=== PATIENT | male | born 1935 | race Caucasian/White ===

== ENCOUNTER 2017-05-09 22:58 | Emergency (ER) | payer MEDICARE, BC ==
--- NOTE | 2017-05-10 00:48 | ED ---
Lower Extremity - HPI Summary HPI Summary: patient just flew in from [place] and has swelling in RLE -he is concerned about DVT. pain began prior to getting on flight while he was walking this afternoon - History of Current Complaint Chief Complaint: EDExtremityLower Stated Complaint: RT LEG SWELLING Time Seen by Provider: 05/10/17 00:48 Hx Obtained From: Patient Onset of Pain: Hours - 8 hours ago Onset/Duration: Still Present Severity Initially: Moderate Severity Currently: Moderate Pain Intensity: 8 Pain Scale Used: 0-10 Numeric Timing: Constant Location: Is Discrete @ - right calf Character Of Pain: Aching Associated Signs And Symptoms: Positive: Swelling Aggravating Factor(s): Standing, Ambulation, Weight Bearing Alleviating Factor(s): Rest, Elevation, OTC Meds Able to Bear Weight: Yes - Allergies/Home Medications Allergies/Adverse Reactions: Allergies Allergy/AdvReac Type Severity Reaction Status Date / Time No Known Allergies Allergy Verified 05/09/17 23:09 PMH/Surg Hx/FS Hx/Imm Hx Previously Healthy: No Endocrine/Hematology History: Reports: Hx Diabetes Denies: Hx Thyroid Disease Cardiovascular History: Reports: Hx Hypertension, Hx Syncope - 07/23/15 near syncopal episode Respiratory History: Reports: Hx Chronic Bronchitis, Hx Pneumonia - Several times Denies: Hx Asthma, Hx Chronic Obstructive Pulmonary Disease (COPD) GI History: Reports: Hx Gall Bladder Disease - Gallbladder removed [place] [facility] [place] Denies: Hx Ulcer History: Reports: Hx Kidney Stones, Hx Renal Disease - STONES, Other Problems/Disorders - Patient of Dr. Arellano. Appointment scheduled 08/12/14. Musculoskeletal History: Reports: Hx Back Problems Sensory History: Reports: Hx Cataracts - Surgical removal, Hx Contacts or Glasses - Reading Opthamlomology History: Reports: Hx Cataracts - Surgical removal, Hx Contacts or Glasses - Reading - Cancer History Hx Hematologic Symptoms: No Hx Chemotherapy: No Hx Radiation Therapy: No Hx Palliative Cancer Treatment: No - Surgical History Surgery Procedure, Year, and Place: hernia repair; GB removed Hx Anesthesia Reactions: No - Immunization History Hx Pertussis Vaccination: No Immunizations Up to Date: Yes Infectious Disease History: No Infectious Disease History: Denies: Hx Hepatitis, Hx Human Immunodeficiency Virus (HIV), History Other Infectious Disease, Traveled Outside the [place] in Last 30 Days - Family History Known Family History: Positive: Cardiac Disease, Diabetes, Other - breast ca, etoh abuse - Social History Occupation: Retired Lives: With Family Alcohol Use: Occasionally Hx Substance Use: No Substance Use Type: Reports: None Hx Tobacco Use: Yes Smoking Status (MU): Former Smoker Type: Cigarettes Have You Smoked in the Last Year: No Review of Systems Constitutional: Negative Eyes: Negative ENT: Negative Cardiovascular: Negative Respiratory: Negative Gastrointestinal: Negative Genitourinary: Negative Musculoskeletal: Other Positive: Myalgia - right calf with swelling Skin: Negative Neurological: Negative Psychological: Normal All Other Systems Reviewed And Are Negative: Yes Physical Exam Triage Information Reviewed: Yes Vital Signs On Initial Exam: Initial Vitals Temp Pulse Resp BP Pulse Ox 97.6 F 84 16 140/79 96 05/09/17 23:06 05/09/17 23:06 05/09/17 23:06 05/09/17 23:06 05/09/17 23:06 Vital Signs Reviewed: Yes Appearance: Positive: Well-Appearing, Well-Nourished, Pain Distress - mild Skin: Positive: Warm, Skin Color Reflects Adequate Perfusion Head/Face: Positive: Normal Head/Face Inspection Eyes: Positive: Normal, EOMI, SANDY, Conjunctiva Clear ENT: Positive: Normal ENT inspection, Hearing grossly normal. Negative: Nasal congestion, Nasal drainage, Tonsillar swelling, Tonsillar exudate, Trismus, Muffled/hoarse voice Neck: Positive: Supple, Nontender Respiratory/Lung Sounds: Positive: Breath Sounds Present Cardiovascular: Positive: Normal, RRR, Pulses are Symmetrical in both Upper and Lower Extremities, Leg Edema Right Abdomen Description: Positive: Nontender Musculoskeletal: Positive: Normal, Strength/ROM Intact, Edema Right - lower leg Neurological: Positive: Normal, Sensory/Motor Intact, Alert, Oriented to Person Place, Time, CN Intact II-III, Reflexes Intact, NV Bundle Intact Distally Psychiatric: Positive: Normal AVPU Assessment: Alert - [place] Coma Scale Best Eye Response: 4 - Spontaneous Best Motor Response: 6 - Obeys Commands Best Verbal Response: 5 - Oriented Coma Scale Total: 15 Diagnostics - Vital Signs Vital Signs Temp Pulse Resp BP Pulse Ox 05/09/17 23:06 97.6 F 84 16 140/79 96 - Laboratory Lab Statement: Any lab studies that have been ordered have been reviewed, and results considered in the medical decision making process. - Ultrasound No standard instances Ultrasound Interpretation: Positive (See Comments) - hematoma right calf Ultrasound Interpretation Completed By: Radiologist Lower Extremity Course/Dx - Course Assessment/Plan: rest, toe touch, minimal weight bearing leg elevated, follow with md PLANNED TO ed for any acute changes - Diagnoses Provider Diagnoses: Hematoma of right lower extremity, Hypertension associated with diabetes - Physician Notifications Discussed Care Of Patient With: Shahid Kapadia Time Discussed With Above Provider: 01:00 Discharge - Discharge Plan Condition: Stable Disposition: HOME Patient Education Materials: Hematoma (ED), Hypertension (ED) Referrals: Manuel Sellers MD [Primary Care Provider] - 05/11/17 Additional Instructions: Minimal weight bearing on right leg, Elevated as much as possible, follow with MD on Tuesday---Return to hospital immediately for increase pain swelling numbness tingling in leg or foot, change in color temperature in leg or foot Your blood pressure is just slightly elevated this evening---follow with Dr. Patel
[2017-05-10 02:08] VITALS: BP 109/64
--- NOTE | 2017-05-10 07:48 | RAD ---
HISTORY: Right calf pain and edema TECHNIQUE: Multiple transverse and longitudinal ultrasound images were obtained of the veins of the right lower extremity using grayscale, color Doppler, and spectral Doppler imaging with and without compression and with augmentation. FINDINGS: VEINS: The common femoral vein, deep femoral vein, femoral vein and popliteal vein are compressible throughout their course, with normal flow on color Doppler imaging and normal response to augmentation on spectral Doppler imaging. SOFT TISSUES: Between the subcutaneous tissue and the musculature of the medial proximal right calf there is an avascular echogenic collection measuring 3.2 x 6.5 cm in the axial plane and approximately 8.8 cm in length. IMPRESSION: 1. No sonographic evidence of deep vein thrombosis. 2. Possible hematoma overlying the medial proximal right calf musculature.
== END 2017-05-10 01:15 | disposition home or self-care (01) ==
LOC: ED 22:58
DX: S80.11XA Contusion of right lower leg, initial encounter (principal); X58.XXXA Exposure to other specified factors, initial encounter; Y93.9 Activity, unspecified; Y92.9 Unspecified place or not applicable; R60.0 Localized edema; I10 Essential (primary) hypertension; E11.9 Type 2 diabetes mellitus without complications; Z87.442 Personal history of urinary calculi; Z90.49 Acquired absence of other specified parts of digestive tract; Z87.891 Personal history of nicotine dependence
CPT/HCPCS: 99282

== ENCOUNTER 2017-07-12 10:30 | Emergency (ER) | payer MEDICARE, BC ==
[2017-07-12 11:02] VITALS: BP 115/66
--- NOTE | 2017-07-12 11:35 | UC ---
Skin Complaint HPI - HPI Summary HPI Summary: Pt presents with a skin growth on the back of his neck. He tells me about 2 years ago he had an abscess in this same spot that went away with warm compresses. About 3 weeks ago this abscess returned. Since that time it has increased in size, redness, and pain. He denies fever, chills, hx of MRSA, headache, or similar lesions elsewhere. - History of Current Complaint Chief Complaint: UCSkin Time Seen by Provider: 07/12/17 11:35 Stated Complaint: LUMP ON BACK OF NECK Hx Obtained From: Patient Onset/Duration: Gradual Onset Skin Exposure Onset/Duration: Weeks Ago Timing: Constant Onset Severity: Mild Current Severity: Mild Pain Intensity: 2 Pain Scale Used: 0-10 Numeric - Allergy/Home Medications Allergies/Adverse Reactions: Allergies Allergy/AdvReac Type Severity Reaction Status Date / Time No Known Allergies Allergy Verified 07/12/17 11:02 Review of Systems Constitutional: Negative Skin: Other - Abscess back of neck ENT: Negative Respiratory: Negative Cardiovascular: Negative Neurological: Negative Psychological: Negative All Other Systems Reviewed And Are Negative: Yes PMH/Surg Hx/FS Hx/Imm Hx Previously Healthy: Yes Endocrine History: Diabetes Cardiovascular History: Hypertension - Surgical History Surgical History: Yes Surgery Procedure, Year, and Place: hernia repair; GB removed - Family History Known Family History: Positive: Cardiac Disease, Diabetes, Other - breast ca, etoh abuse - Social History Occupation: Retired Lives: With Family Alcohol Use: Occasionally Substance Use Type: None Smoking Status (MU): Former Smoker Type: Cigarettes Length of Time of Smoking/Using Tobacco: approx 20 yrs Have You Smoked in the Last Year: No When Did the Patient Quit Smoking/Using Tobacco: 1983 - Immunization History Most Recent Influenza Vaccination: 05/08 Most Recent Tetanus Shot: unknown Most Recent Pneumonia Vaccination: 2014 Physical Exam Triage Information Reviewed: Yes Appearance: Well-Appearing, Well-Nourished Vital Signs: Initial Vital Signs Temp 97.9 F 07/12/17 10:54 Pulse 73 07/12/17 10:54 Resp 16 07/12/17 10:54 BP 115/66 07/12/17 10:54 Pulse Ox 97 07/12/17 10:54 Vital Signs Reviewed: Yes Neck: Positive: Supple, Nontender, No Lymphadenopathy Respiratory: Positive: Chest non-tender, Lungs clear, Normal breath sounds, No respiratory distress, No accessory muscle use Cardiovascular: Positive: RRR, No Murmur, Pulses Normal Neurological: Positive: Alert Psychological: Positive: Age Appropriate Behavior Skin: Positive: Other - There is a 1.5cm in diameter fluctuant abscess on the nape of the neck with surrounding erythema and mild induration. Mildly TTP. No drainage or streaking. Course/Dx - Course Course Of Treatment: A time out was performed, witnessed, and signed. 2mL of 2% lidocaine without epi was administered and good anesthetization was achieved. An Iodine swab was used to cleanse the area. A #11 blade scalpel was used to make a linear central incision ~3mm in length. Copious purulent matter was able to be expressed. Hemostasis was achieved. No need for packing. Wound was dressed with dry gauze and tegaderm. Pt tolerate procedure well. I will place him on Bactrim for 10 days and follow up prn with PCP. - Differential Diagnoses - Skin Complaint Differential Diagnoses: Abscess, MRSA - Diagnoses Provider Diagnoses: Abscess back of neck Procedures - Incision and Drainage Site: Nape of neck Anesthesia: Local - 2% without epi lidocaine Instrument(s): Scalpel - #11 Discharge - Discharge Plan Condition: Stable Disposition: HOME Prescriptions: Sulfamethox/Trimethoprim DS* [Bactrim DS 800/160 TAB*] 1 tab PO BID #14 tab Patient Education Materials: Abscess (ED) Referrals: Manuel Sellers MD [Primary Care Provider] - Additional Instructions: If you develop a fever, SOB, chest pain, new or worsening symptoms - please call your PCP or go to the ED. Keep bandage in place for the next 24 hours. If the abscess returns despite the antibiotic, please call your PCP and schedule a follow up.
[2017-07-12] MEDS ORDERED: Lidocaine 2% PF * 5 ML VIAL INJ ONE (11:39)
[2017-07-12] MEDS ORDERED: Lidocaine 1% MPF* 2 ML VIAL ONE (11:41)
== END 2017-07-12 12:17 | disposition home or self-care (01) ==
LOC: UCEAST 10:30
DX: Z72.89 Other problems related to lifestyle (principal); L02.11 Cutaneous abscess of neck
CPT/HCPCS: 10060; 99212; G0463

== ENCOUNTER 2018-07-25 07:47 | Emergency (ER) | payer MEDICARE, BC ==
--- NOTE | 2018-07-25 08:10 | ED ---
Back Pain - HPI Summary HPI Summary: This patient is a 82 year old M brought in by EMS to [facility] c/o lower back pain that began last night. Pt states he got out of his chair last night after watching TV and had a sudden onset on left sided lower back pain. It has happened once in the past but resolved with time and Advil. The patient rates the sharp pain 10/10 in severity. Symptoms alleviated by lying flat. The pain is worse with raising the right leg while lying flat. Patient denies numbness and tingling, back injuries, fever, chills, LAINEZ, diaphoresis, and n/v/d. No hx back issues or gout. Hx DM with normal glucose levels. He does not take any daily pain medication. The patients is on her way and will be taking him home. - History of Current Complaint Chief Complaint: EDBackInjuryPain Stated Complaint: BACK PAIN Time Seen by Provider: 07/25/18 08:00 Hx Obtained From: Patient Onset/Duration: Lasting Days, Still Present Onset/Duration: Still Present Timing: Constant Back Pain Location: Is Discrete @ Severity Initially: Severe Severity Currently: Severe Pain Intensity: 10 Pain Scale Used: 0-10 Numeric Associated Signs And Symptoms: Positive: Negative - numbness and tingling, back injuries, fever, chills LAINEZ, diaphoresis, and n/v/d - Allergies/Home Medications Allergies/Adverse Reactions: Allergies Allergy/AdvReac Type Severity Reaction Status Date / Time No Known Allergies Allergy Verified 07/25/18 07:56 PMH/Surg Hx/FS Hx/Imm Hx Endocrine/Hematology History: Reports: Hx Diabetes Denies: Hx Thyroid Disease Cardiovascular History: Reports: Hx Hypertension, Hx Syncope - 07/23/15 near syncopal episode Respiratory History: Reports: Hx Chronic Bronchitis, Hx Pneumonia - Several times Denies: Hx Asthma, Hx Chronic Obstructive Pulmonary Disease (COPD) GI History: Reports: Hx Gall Bladder Disease - Gallbladder removed at [facility] [place] Denies: Hx Ulcer History: Reports: Hx Kidney Stones, Hx Renal Disease - STONES, Other Problems/Disorders - Patient of Dr. Arellano. Appointment scheduled 08/12/14. Musculoskeletal History: Reports: Hx Back Problems Sensory History: Reports: Hx Cataracts - Surgical removal, Hx Contacts or Glasses - Reading Opthamlomology History: Reports: Hx Cataracts - Surgical removal, Hx Contacts or Glasses - Reading - Cancer History Hx Hematologic Symptoms: No Hx Chemotherapy: No Hx Radiation Therapy: No Hx Palliative Cancer Treatment: No - Surgical History Surgery Procedure, Year, and Place: hernia repair; GB removed Hx Anesthesia Reactions: No Infectious Disease History: No Infectious Disease History: Denies: Hx Hepatitis, Hx Human Immunodeficiency Virus (HIV), History Other Infectious Disease, Traveled Outside the [place] in Last 30 Days - Family History Known Family History: Positive: Cardiac Disease, Diabetes, Other - breast ca, etoh abuse - Social History Alcohol Use: Occasionally Hx Substance Use: No Substance Use Type: Reports: None Hx Tobacco Use: Yes Smoking Status (MU): Former Smoker Type: Cigarettes Length of Time of Smoking/Using Tobacco: approx 20 yrs Have You Smoked in the Last Year: No Review of Systems Negative: Fever, Chills, Skin Diaphoresis Negative: Erythema Negative: Sore Throat Negative: Chest Pain Negative: Shortness Of Breath, Cough Negative: Abdominal Pain, Vomiting, Diarrhea, Nausea Negative: dysuria, hematuria Musculoskeletal: Other - lower back pain Negative: Edema Negative: Rash Neurological: Negative - dizziness Negative: Headache, Paresthesia, Numbness All Other Systems Reviewed And Are Negative: Yes Physical Exam - Summary Physical Exam Summary: Constitutional: Well-developed, Well-nourished, Alert. (-) Distressed Skin: Warm, Dry HENT: Normocephalic; Atraumatic Eyes: Conjunctiva normal Neck: Musculoskeletal ROM normal neck. (-) JVD, (-) Stridor, (-) Tracheal deviation Cardio: Rhythm regular, rate normal, Heart sounds normal; Intact distal pulses; The pedal pulses are 2+ and symmetric. Radial pulses are 2+ and symmetric. (-) Murmur Pulmonary/Chest wall: Effort normal. (-) Respiratory distress, (-) Wheezes, (-) Rales Abd: Soft, (-) epigastric tenderness, (-) Distension, (-) Guarding, (-) Rebound Musculoskeletal: (-) Edema, Full passive Rom of the hip. Develops discomfort over the left gluteal area with crossed straight leg raise on the right and with attempting to sit up Lymph: (-) Cervical adenopathy Neuro: Alert, Oriented x3 Psych: Mood and affect Normal Triage Information Reviewed: Yes Vital Signs On Initial Exam: Initial Vitals Temp Pulse Resp BP Pulse Ox 98.1 F 72 20 136/80 95 07/25/18 07:52 07/25/18 07:52 07/25/18 07:52 07/25/18 07:52 07/25/18 07:52 Vital Signs Reviewed: Yes Diagnostics - Vital Signs Vital Signs Temp Pulse Resp BP Pulse Ox 07/25/18 07:52 98.1 F 72 20 136/80 95 - Laboratory Lab Statement: Any lab studies that have been ordered have been reviewed, and results considered in the medical decision making process. - Radiology L spine xray Radiology Interpretation Completed By: Radiologist Summary of Radiographic Findings: FACET OSTEOARTHRITIS MOST PRONOUNCED ALONG THE LOWER LUMBAR SPINE WITH MILD DEGENERATIVE. DISC DISEASE. ED physician has reviewed this radiology report. hip xray Radiology Interpretation Completed By: Radiologist - OSTEOARTHRITIS. NO ACUTE OSSEOUS INJURY. IF SYMPTOMS PERSIST, RECOMMEND REPEAT IMAGING. ED physician has reviewed this radiology report. Re-Evaluation - Re-Evaluation First Eval Re-Evaluation Time: 11:10 - Able to stand and walk, pain under control Back Pain Course/Dx - Course Assessment/Plan: This patient is a 82 year old M brought in by EMS to [facility] c/o lower back pain that began last night. Pt states he got out of his chair last night after watching TV and had a sudden onset on left sided lower back pain. It has happened once in the past but resolved with time and Advil. The patient rates the sharp pain 10/10 in severity. Symptoms alleviated by lying flat. The pain is worse with raising the right leg while lying flat. Patient denies numbness and tingling, back injuries, fever, chills, LAINEZ, diaphoresis, and n/v/ d. No hx back issues or gout. Hx DM with normal glucose levels. He does not take any daily pain medication. The patients is on her way and will be taking him home. Hip pelvis XR reveals, per radiologist, OSTEOARTHRITIS. NO ACUTE OSSEOUS INJURY. IF SYMPTOMS PERSIST, RECOMMEND REPEAT IMAGING. L spine xray reveals per radiology, FACET OSTEOARTHRITIS MOST PRONOUNCED ALONG THE LOWER LUMBAR SPINE WITH MILD DEGENERATIVE. DISC DISEASE. The patient was given a paper rx for tramadol and he was given a pamphlet for [facility] In the ED course the patient was given toradol, tramadol, and valium in the ED . The patient improved with these mediations. Patient will be discharged and follow up from his PCP. Pt was given return instructions,. The patient is agreeable with this plan. - Diagnoses Provider Diagnoses: Hip strain, Hip arthritis, Lumbar and sacral arthritis Discharge - Sign-Out/Discharge Documenting (check all that apply): Patient Departure - departed - Discharge Plan Condition: Good Disposition: HOME Prescriptions: Naproxen TAB* [Naprosyn 250 mg TAB*] 500 mg PO Q8H PRN #30 tab PRN Reason: Pain Scale 6-10 traMADol TAB* [Ultram*] 50 mg PO Q6HR PRN #12 tab MDD 4 PRN Reason: Pain Scale 6-10 Patient Education Materials: Lumbar Radiculopathy (ED), Hip Pain (ED) Referrals: Manuel Sellers MD [Primary Care Provider] - 2 Days Additional Instructions: Heating pad as needed, naproxen for pain the next couple of days, tramadol for the severe pain. Do not drive or operate machinery with tramadol. - Attestation Statements Document Initiated by Scribe: Yes Documenting Scribe: Marcelino Pettit Provider For Whom Scribe is Documenting (Include Credential): Flo Gonzalez MD Scribe Attestation: Marcelino Parr , scribed for Flo Gonzalez MD on 07/25/18 at 1126. Status of Scribe Document: Ready
[2018-07-25] MEDS ORDERED: Ketorolac INJ* 30 MG/ML 1 ML VIAL IM ONE (08:13)
[2018-07-25] MEDS ORDERED: Diazepam TAB(*) 5 MG PO ONE (08:13)
[2018-07-25] MEDS ORDERED: traMADol TAB* 50 MG PO ONE (09:33)
[2018-07-25 11:30] VITALS: BP 125/76
== END 2018-07-25 11:34 | disposition home or self-care (01) ==
LOC: ED 07:47
DX: S76.011A Strain of muscle, fascia and tendon of right hip, initial encounter (principal); M54.5 Low back pain; Z87.891 Personal history of nicotine dependence; M47.898 Other spondylosis, sacral and sacrococcygeal region; M16.10 Unilateral primary osteoarthritis, unspecified hip; X50.9XXA Other and unspecified overexertion or strenuous movements or postures, initial encounter; Y92.9 Unspecified place or not applicable
CPT/HCPCS: 72110; 96372; 99283; A9270-GY; J1885

== ENCOUNTER 2021-02-01 05:36 | Inpatient (IN) ==
[2021-02-01] MEDS ORDERED: NS 0.9% 1000 ml BAG 1,000 ML IV ONE (06:03)
[2021-02-01 06:32] LABS: ABS Basophils 0.1 10^3/ul (0-0.2); ABS Eosinophils 0.2 10^3/ul (0-0.6); ABS Lymphocytes 3.3 10^3/ul (1.0-4.8); ABS Monocytes 0.4 10^3/ul (0-0.8); Eosinophil % 2.8 %; Hematocrit 47 % (42-52); Hemoglobin 15.8 g/dL (14.0-18.0); Lymphocyte % 55.2 %; Mean Corpuscular HGB Conc 34 g/dL (31-36); Mean Corpuscular Hemoglobin 31 pg (27-31); Mean Corpuscular Volume 93 fL (80-94); Mean Platelet Volume 7.7 fL (7.4-10.4); Platelet Count 203 10^3/uL (150-450); Red Blood Count 5.03 10^6 /uL (4.18-5.48); Red Cell Distribution Width 14 % (10-15); White Blood Count 5.9 10^3/uL (3.5-10.8)
[2021-02-01 06:48] LABS: ALT 20 U/L (7-52); AST 14 U/L (13-39); Albumin 3.7 g/dL (3.2-5.2); Albumin/Globulin Ratio 1.5 (1-3); Alkaline Phosphatase 48 U/L (35-149); Anion Gap 6 mmol/L (2-11); Blood Urea Nitrogen 22 mg/dL (6-24); CO2 Carbon Dioxide 27 mmol/L (22-32); Calcium 9.2 mg/dL (8.6-10.3); Chloride 106 mmol/L (101-111); EGFR African American 93.7 (>60); EGFR Non-African American 77.4 (>60); Globulin 2.4 g/dL (2-4); Glucose 185 mg/dL (70-100); Magnesium 1.9 mg/dL (1.9-2.7); Potassium 3.8 mmol/L (3.5-5.0); Sodium 139 mmol/L (135-145); Total Protein 6.1 g/dL (6.4-8.9)
[2021-02-01 06:54] LABS: Troponin I 0.03 ng/mL (<0.03)
[2021-02-01] MEDS ORDERED: Iodixanol (CONTRAST) 320 MG/ML 100 ML SDV IV ONE (07:00)
[2021-02-01 07:03] LABS: TSH Ultra Thyroid Stim Horm 4.82 mcIU/mL (0.34-5.60)
[2021-02-01 08:56] LABS: Urine Appearance Clear; Urine Bilirubin Negative (Negative); Urine Blood Negative (Negative); Urine Color Yellow; Urine Glucose 3+(>=500 mg/dL) (Negative); Urine Ketones Negative (Negative); Urine Nitrite Negative (Negative); Urine Protein Negative (Negative); Urine Urobilinogen Negative (Negative)
[2021-02-01 08:58] LABS: T4, Total 7.39 mcg/dL (6.09-12.23)
[2021-02-01 09:01] LABS: Urine Specific Gravity > 1.060 (1.002-1.030)
[2021-02-01 09:11] LABS: Troponin I 0.49 ng/mL (<0.03)
[2021-02-01] MEDS ORDERED: Heparin DRIP 25,000 UNITS BAG 25,000 UNITS/500 ML BAG IV SCH (09:45)
[2021-02-01] MEDS ORDERED: Heparin 5000 UNITS/ML 1 mL VIAL IV SCH (10:00)
[2021-02-01] MEDS ORDERED: Dextrose 50% Syringe 50 ml 25 GM/50 ML SYRINGE IV PUSH PRN (10:06)
[2021-02-01 10:25] LABS: ABS Basophils 0.1 10^3/ul (0-0.2); ABS Eosinophils 0.1 10^3/ul (0-0.6); ABS Lymphocytes 2.9 10^3/ul (1.0-4.8); ABS Monocytes 0.3 10^3/ul (0-0.8); ABS Neutrophils 2.6 10^3/ul (1.5-7.7); Eosinophil % 1.8 %; Hematocrit 44 % (42-52); Hemoglobin 15.1 g/dL (14.0-18.0); Lymphocyte % 48.6 %; Mean Corpuscular HGB Conc 34 g/dL (31-36); Mean Corpuscular Hemoglobin 32 pg (27-31); Mean Corpuscular Volume 93 fL (80-94); Mean Platelet Volume 7.4 fL (7.4-10.4); Nucleated Red Blood Cells % 0.1; Platelet Count 198 10^3/uL (150-450); Red Blood Count 4.75 10^6 /uL (4.18-5.48); Red Cell Distribution Width 14 % (10-15)
[2021-02-01 10:40] LABS: Blood Urea Nitrogen 19 mg/dL (6-24); EGFR African American 102.5 (>60); EGFR Non-African American 84.7 (>60)
[2021-02-01 10:51] LABS: Activated Partial Thrombo Time 32.7 seconds (26.0-38.0)
[2021-02-01 11:23] LABS: Cholesterol 142 mg/dL; HDL Cholesterol 34.9 mg/dL; LDL Cholesterol 85 mg/dL; Triglycerides 110 mg/dL
[2021-02-01 12:29] LABS: Troponin I 1.65 ng/mL (<0.03)
[2021-02-01 13:56] LABS: CO2 Carbon Dioxide 20 mmol/L (22-32); Calcium 9.2 mg/dL (8.6-10.3); Chloride 109 mmol/L (101-111); Sodium 139 mmol/L (135-145)
[2021-02-01 14:01] LABS: Anion Gap 10 mmol/L (2-11)
[2021-02-01 14:02] LABS: Glucose 126 mg/dL (70-100)
[2021-02-01 14:28] LABS: INR 1.04 (0.86-1.15)
[2021-02-01 15:08] LABS: Potassium Redraw 3.8 mmol/L (3.5-5.0)
[2021-02-01 15:16] LABS: Troponin I 2.33 ng/mL (<0.03)
[2021-02-01] MEDS: Fluticasone NASAL SPRAY 50MCG 16 gm SPRAY BTL INTRANASAL SCH (16:32)
[2021-02-01 17:24] LABS: Troponin I 2.82 ng/mL (<0.03)
[2021-02-01] MEDS ORDERED: NS 0.9% 500 ml BAG 500 ML IV ONE (18:42)
[2021-02-01] MEDS ORDERED: nitroGLYCERIN DRIP 25,000 MCG/250 ML BTL IV SCH (19:00)
[2021-02-01] MEDS ORDERED: Midazolam 5 mg/5 ml VIAL 1 mg/ml 5 ml VIAL (5 mg) ONE (19:13)
[2021-02-01] MEDS ORDERED: Iohexol 350 (CONTRAST) 200 ML MDV IV ONE (19:13)
[2021-02-01] MEDS ORDERED: Heparin 2 UNITS/ML 1000 mls 2,000 ML IV ONE (19:13)
[2021-02-01] MEDS ORDERED: fentaNYL 100 mcg/2 ml 50 MCG/ML VIAL ONE (19:13)
[2021-02-01] MEDS ORDERED: nitroGLYCERIN DRIP 25,000 MCG/250 ML BTL ONE (19:13)
[2021-02-01] MEDS ORDERED: Heparin 1,000 UNIT/ML 10 ml (10,000 UNITS) CATHLAB/DIALYSIS ONE (19:13)
[2021-02-01] MEDS ORDERED: VERAPAMIL 2.5 MG/ML 2 ML VIAL ** 5 mg/2 ml ONE (19:13)
[2021-02-01] MEDS ORDERED: Lidocaine 1% VIAL 10 MG/ML VIAL ONE (19:13)
[2021-02-01] MEDS ORDERED: Bivalirudin 250 MG VIAL ONE (19:58)
[2021-02-01] MEDS ORDERED: Nitro 2% OINT (Nitroglycerin) 1 INCH/PAK TOPICAL ONE (22:49)
[2021-02-01] MEDS ORDERED: Ondansetron 4 mg VIAL 2 MG/ML 2 ml VIAL IV PRN (22:55)
[2021-02-01] MEDS ORDERED: Ondansetron 4 mg VIAL 2 MG/ML 2 ml VIAL ONE (22:56)
[2021-02-01] MEDS ORDERED: Morphine 2 MG/ML SYRINGE IV ONE (23:31)
[2021-02-02 00:18] LABS: Anion Gap 6 mmol/L (2-11); Blood Urea Nitrogen 20 mg/dL (6-24); CO2 Carbon Dioxide 25 mmol/L (22-32); Calcium 8.9 mg/dL (8.6-10.3); Chloride 106 mmol/L (101-111); EGFR African American 105.3 (>60); EGFR Non-African American 87.1 (>60); Glucose 137 mg/dL (70-100); Potassium 3.8 mmol/L (3.5-5.0); Sodium 137 mmol/L (135-145)
[2021-02-02 00:26] LABS: Troponin I 2.01 ng/mL (<0.03)
[2021-02-02] MEDS ORDERED: Potassium Chlor 20 meq TAB.ER PO ONE (03:16)
[2021-02-02] MEDS ORDERED: Nitro Patch/OINT Remove PATCH PATCH OFF ONE (05:00)
[2021-02-02 05:39] LABS: ABS Basophils 0.1 10^3/ul (0-0.2); ABS Eosinophils 0.1 10^3/ul (0-0.6); ABS Lymphocytes 2.7 10^3/ul (1.0-4.8); ABS Monocytes 0.5 10^3/ul (0-0.8); Eosinophil % 1.9 %; Hematocrit 40 % (42-52); Hemoglobin 13.8 g/dL (14.0-18.0); Lymphocyte % 42.5 %; Mean Corpuscular HGB Conc 35 g/dL (31-36); Mean Corpuscular Hemoglobin 32 pg (27-31); Mean Corpuscular Volume 93 fL (80-94); Mean Platelet Volume 7.6 fL (7.4-10.4); Platelet Count 181 10^3/uL (150-450); Red Blood Count 4.26 10^6 /uL (4.18-5.48); Red Cell Distribution Width 14 % (10-15); White Blood Count 6.3 10^3/uL (3.5-10.8)
[2021-02-02 05:48] LABS: Calcium 8.7 mg/dL (8.6-10.3); EGFR African American 121.9 (>60); EGFR Non-African American 100.8 (>60); Phosphorus 3.2 mg/dL (2.5-5.0)
[2021-02-02] MEDS: Vitamin THERAPEUTIC TAB PO SCH (07:49)
[2021-02-02] MEDS ORDERED: Perflutren Lipid Microsphere 3 ML VIAL ONE (08:38)
[2021-02-02] MEDS: Fluticasone NASAL SPRAY 50MCG 16 gm SPRAY BTL INTRANASAL SCH (10:52)
[2021-02-02] MEDS: NS 0.9% 1000 ml BAG 1,000 ML IV SCH ×2 (14:11→17:06)
[2021-02-03 05:44] LABS: Hematocrit 45 % (42-52); Hemoglobin 15.3 g/dL (14.0-18.0); Mean Corpuscular HGB Conc 34 g/dL (31-36); Mean Corpuscular Hemoglobin 32 pg (27-31); Mean Corpuscular Volume 93 fL (80-94); Mean Platelet Volume 7.6 fL (7.4-10.4); Platelet Count 199 10^3/uL (150-450); Red Blood Count 4.86 10^6 /uL (4.18-5.48); Red Cell Distribution Width 14 % (10-15); White Blood Count 6.6 10^3/uL (3.5-10.8)
[2021-02-03 05:59] LABS: Calcium 9.3 mg/dL (8.6-10.3); EGFR African American 116.5 (>60); EGFR Non-African American 96.2 (>60); Magnesium 1.9 mg/dL (1.9-2.7); Phosphorus 3.6 mg/dL (2.5-5.0)
[2021-02-03] MEDS: Vitamin THERAPEUTIC TAB PO SCH (08:05)
[2021-02-03] MEDS: Fluticasone NASAL SPRAY 50MCG 16 gm SPRAY BTL INTRANASAL SCH (08:10)
[2021-02-03 11:57] VITALS: BP 111/56
== END 2021-02-03 13:14 | disposition home or self-care (01) | DRG 247 ==
LOC: ED 05:36 → MEDTELE 13:31 → ICU 20:43 → MEDTELE 02-02 17:14
PROVIDERS: ADMIT Internal Medicine; ATTEND Pediatrics

== ENCOUNTER 2021-02-19 11:07 | Inpatient (IN) ==
[2021-02-19 13:08] LABS: ABS Basophils 0.1 10^3/ul (0-0.2); ABS Eosinophils 0.1 10^3/ul (0-0.6); ABS Lymphocytes 2.3 10^3/ul (1.0-4.8); ABS Monocytes 0.4 10^3/ul (0-0.8); ABS Neutrophils 3.7 10^3/ul (1.5-7.7); Eosinophil % 1.8 %; Hematocrit 38 % (42-52); Hemoglobin 13.1 g/dL (14.0-18.0); Lymphocyte % 34.7 %; Mean Corpuscular HGB Conc 34 g/dL (31-36); Mean Corpuscular Hemoglobin 32 pg (27-31); Mean Corpuscular Volume 92 fL (80-94); Mean Platelet Volume 7.3 fL (7.4-10.4); Platelet Count 241 10^3/uL (150-450); Red Blood Count 4.14 10^6 /uL (4.18-5.48); Red Cell Distribution Width 13 % (10-15); White Blood Count 6.6 10^3/uL (3.5-10.8)
[2021-02-19 13:16] LABS: Activated Partial Thrombo Time 32.7 seconds (26.0-38.0); INR 1.06 (0.86-1.15)
[2021-02-19 13:28] LABS: Troponin I 0.01 ng/mL (<0.03)
[2021-02-19 13:30] LABS: Albumin 4.1 g/dL (3.2-5.2); Albumin/Globulin Ratio 1.6 (1-3); Calcium 9.9 mg/dL (8.6-10.3); EGFR African American 113.1 (>60); EGFR Non-African American 93.4 (>60); Globulin 2.6 g/dL (2-4); Total Bilirubin 0.5 mg/dL (0.2-1.0); Total Protein 6.7 g/dL (6.4-8.9)
[2021-02-19] MEDS ORDERED: Pantoprazole VIAL 40 MG VIAL IV ONE ×2 (14:56→15:21)
[2021-02-19] MEDS ORDERED: Midazolam 10 mg/10 ml VIAL 1 mg/ml 10 ml VIAL (10 mg) ONE (16:29)
[2021-02-19] MEDS ORDERED: fentaNYL 100 mcg/2 ml 50 MCG/ML VIAL ONE (16:29)
[2021-02-19] MEDS ORDERED: Dextrose 50% Syringe 50 ml 25 GM/50 ML SYRINGE IV PUSH PRN (18:09)
[2021-02-19] MEDS ORDERED: Ondansetron 4 mg VIAL 2 MG/ML 2 ml VIAL IV PRN (18:11)
[2021-02-20 05:47] LABS: ABS Basophils 0.1 10^3/ul (0-0.2); ABS Eosinophils 0.2 10^3/ul (0-0.6); ABS Lymphocytes 2.5 10^3/ul (1.0-4.8); ABS Monocytes 0.5 10^3/ul (0-0.8); ABS Neutrophils 3.6 10^3/ul (1.5-7.7); Eosinophil % 2.4 %; Hematocrit 34 % (42-52); Hemoglobin 11.7 g/dL (14.0-18.0); Lymphocyte % 36.2 %; Mean Corpuscular HGB Conc 34 g/dL (31-36); Mean Corpuscular Hemoglobin 32 pg (27-31); Mean Corpuscular Volume 92 fL (80-94); Mean Platelet Volume 7.6 fL (7.4-10.4); Platelet Count 210 10^3/uL (150-450); Red Cell Distribution Width 13 % (10-15); White Blood Count 6.9 10^3/uL (3.5-10.8)
[2021-02-20 05:58] LABS: Calcium 8.3 mg/dL (8.6-10.3); EGFR African American 132.2 (>60); EGFR Non-African American 109.2 (>60); Potassium 3.7 mmol/L (3.5-5.0)
[2021-02-20] MEDS: Fluticasone NASAL SPRAY 50MCG 16 gm SPRAY BTL INTRANASAL SCH (09:30)
[2021-02-21 06:51] LABS: Hematocrit 34 % (42-52); Hemoglobin 12.2 g/dL (14.0-18.0); Mean Corpuscular HGB Conc 36 g/dL (31-36); Mean Corpuscular Hemoglobin 32 pg (27-31); Mean Corpuscular Volume 91 fL (80-94); Mean Platelet Volume 7.7 fL (7.4-10.4); Platelet Count 208 10^3/uL (150-450); Red Blood Count 3.78 10^6 /uL (4.18-5.48); Red Cell Distribution Width 14 % (10-15); White Blood Count 5.5 10^3/uL (3.5-10.8)
[2021-02-21 07:02] LABS: EGFR African American 106.8 (>60); EGFR Non-African American 88.3 (>60); Potassium 3.7 mmol/L (3.5-5.0)
[2021-02-21] MEDS: Fluticasone NASAL SPRAY 50MCG 16 gm SPRAY BTL INTRANASAL SCH (08:30)
[2021-02-21 10:03] VITALS: BP 118/53
== END 2021-02-21 11:25 | disposition home or self-care (01) | DRG 377 ==
LOC: MEDTELE 11:07 → ED 11:07 → MEDTELE 16:31
PROVIDERS: ADMIT Student in an Organized Health Care Education/Training Program; ATTEND Internal Medicine